=== PATIENT | male | born 1965 | race Caucasian/White ===

== ENCOUNTER 2017-02-23 14:33 | Emergency (ER) | payer OTHER ==
--- NOTE | 2017-02-23 15:16 | Emergency Department Record ---
History of Present Illness - General Chief complaint: Extremity Problem Stated complaint: LEFT TOE INFECTION Time Seen by Provider: 02/23/17 14:51 Source: Patient Mode of Arrival: Ambulatory Limitations: No limitations - History of Present Illness Initial comments: 52 yo male presents with great toe pain, swelling and some drainage for 2-3 days He drained pus out yesterday. He had known ingrown nails but has been walking a lot in tight boots. No streaking. Not a diabetic. MD Complaint: Extremity pain, Extremity swelling Onset/Timin -: Days(s) Location: Left, Foot History of Same: No Radiation: None Severity scale (1-10): 2 Quality: Other Consistency: Intermittent Improves with: Nothing Worsens with: Palpation, Weight bearing Associated Symptoms: Denies other symptoms - Related Data Previous Rx's Medication Instructions Recorded Cephalexin [Keflex] 500 mg PO TID #21 cap 02/23/17 Allergies Allergy/AdvReac Type Severity Reaction Status Date / Time No Known Drug Allergies Allergy Verified 02/23/17 14:49 Travel Screening - Travel/Exposure Within Last 30 Days Have you traveled within the last 30 days?: No Review of Systems Constitutional: Denies: Chills, Fever, Malaise, Weakness Eyes: Denies: Eye discharge ENT: Denies: Congestion, Throat pain Respiratory: Denies: Cough, Dyspnea, Hemoptysis, Stridor, Wheezes Cardiovascular: Denies: Chest pain Endocrine: Denies: Fatigue Gastrointestinal: Denies: Diarrhea, Nausea, Vomiting Genitourinary: Denies: Dysuria, Frequency, Hematuria Musculoskeletal: Reports: As per HPI, Arthralgia Skin: Reports: Change in color (erythema). Denies: Bruising Neurological: Denies: Confusion, Headache Psychiatric: Denies: Anxiety Hematological/Lymphatic: Denies: Blood Clots, Easy bleeding, Easy bruising, Swollen glands Past Medical History - SOCIAL HISTORY Smoking Status: Current some day smoker Alcohol Use: Occasional Drug Use: None - RESPIRATORY Hx Respiratory Disorders: No - CARDIOVASCULAR Hx Cardio Disorders: No - NEURO Hx Neuro Disorders: No - GI Hx GI Disorders: No - Hx Genitourinary Disorders: No - ENDOCRINE Hx Endocrine Disorders: No - MUSCULOSKELETAL Hx Musculoskeletal Disorders: No - PSYCH Hx Psych Problems: No - HEMATOLOGY/ONCOLOGY Hx Hematology/Oncology Disorders: No Family Medical History Any Significant Family History?: No Physical Exam - General General Appearance: Alert, Oriented x3, Cooperative, No acute distress Limitations: No limitations - Head Head exam: Normal inspection - Eye Eye exam: Normal appearance - ENT ENT exam: Normal exam Ear exam: Normal external inspection Nasal Exam: Normal inspection - Neck Neck exam: Normal inspection - Cardiovascular Peripheral Pulses: 2+: Dorsalis Pedis (L) - Rectal Rectal exam: Deferred - exam: Deferred - Extremities Extremities exam: Full ROM, Joint swelling (left great toe). negative: Normal inspection Image of Feet: 1 - distal erythema with medial obvious ingrown nail, small amount of pus at nail, skin juncture - Neurological Neurological exam: Alert, Normal gait, Oriented X3, Reflexes normal - Psychiatric Psychiatric exam: Normal affect, Normal mood - Skin Skin exam: Erythema Course Vital Signs 02/23/17 14:42 Temperature 98.2 F Pulse Rate 79 Respiratory 20 Rate Blood Pressure 152/87 Pulse Ox 98 - Reevaluation(s) Reevaluation #1: I recommended digital block of the two with removal of the medial portion of the nail He was in agreement Digital Block Betadine prep Sensorcaine 4.5ml The great toe nail was sharply dissected to the base The medial 20% was gently removed from the nail bed and removed The area was irrigated and cleaned Dressing placed He tolerated this well Rx for Keflex provided. 02/23/17 15:49 Disposition Disposition: Discharge Clinical Impression: Ingrown toenail Disposition: Home, Self-Care Condition: (1) Good Instructions: Ingrown Nail (ED) Additional Instructions: Clean the area twice daily with warm soap and water No pools, ponds, lakes, greco for at least 1 week Return if worse, fever, spreading redness or concerns Keflex 3 times daily Prescriptions: Cephalexin [Keflex] 500 mg PO TID #21 cap Forms: Patient Portal Access Time of Disposition: 15:18 Quality - Quality Measures Quality Measures: N/A - Blood Pressure Screening View Details: Yes Blood Pressure Classification: Pre-Hypertensive BP Reading Systolic Measurement: 152 Diastolic Measurement: 87 Screening for High Blood Pressure: < Pre-Hypertensive BP, F/U Documented > [ [id number]] Pre-Hypertensive Follow-up Interventions: Referral to alternative/primary care provider.
== END 2017-02-23 15:48 | disposition home or self-care (01) ==
LOC: ER 14:33
DX: L60.0 Ingrowing nail (principal)
CPT/HCPCS: 11750; 99283